=== PATIENT | female | born 1985 | race Caucasian/White ===

== ENCOUNTER 2017-09-20 11:02 | Emergency (ER) | payer MEDICAID ==
[2017-09-20 12:59] LABS: ADD MAN DIFF? NO
[2017-09-20 13:07] LABS: WHITE BLOOD COUNT 9.1 10^3/ul (4.8-10.8)
[2017-09-20 13:07] LABS: ABNORMAL IP MESSAGE 1; BASOPHILS % 0.4 % (0.0-2.0); EOSINOPHILS % 0.2 % (0.0-7.0); HEMATOCRIT 27.1 % (37.0-47.0); HEMOGLOBIN 7.6 g/dl (12.0-16.0); LYMPHOCYTES # 1.9 10^3/ul (0.8-2.9); LYMPHOCYTES % 21.3 % (15.0-51.0); MEAN CORPUSCULAR HEMOGLOBIN 17.4 pg (29.0-33.0); MEAN PLATELET VOLUME 9.6 fl (7.4-10.4); MONOCYTE # 0.7 10^3/ul (0.3-0.9); MONOCYTES % 7.2 % (0.0-11.0); NEUTROPHIL # 6.4 10^3/ul (1.6-7.5); NEUTROPHILS % 70.3 % (39.0-77.0); PLATELET COUNT 485 10^3/UL (140-415); RED BLOOD COUNT 4.37 10^6/ul (4.20-5.40); RED CELL DISTRIBUTION WIDTH 17.2 % (11.5-14.5)
[2017-09-20] MEDS: METOCLOPRAMIDE 10 MG TAB PO (13:07)
[2017-09-20 13:09] LABS: POSITIVE DIFF @See below
[2017-09-20 14:23] LABS: IMMEDIATE SPIN CROSSMATCH 1 1
[2017-09-20] MEDS: SOD CHLORIDE 0.9% 250 ML IV (14:30)
[2017-09-20 14:38] LABS: ADD UMIC YES; UR ASCORBIC ACID NEGATIVE (NEGATIVE); UR BILIRUBIN (Dip) NEGATIVE (NEGATIVE); UR BLOOD (Dip) 3+ mg/dL (NEGATIVE); UR CLARITY CLEAR (CLEAR); UR COLOR YELLOW (YELLOW); UR GLUCOSE (Dip) NEGATIVE (NEGATIVE); UR KETONES (Dip) NEGATIVE (NEGATIVE); UR LEUKOCYTE ESTERASE (Dip) NEGATIVE Leu/ul (NEGATIVE); UR NITRITE (Dip) NEGATIVE (NEGATIVE); UR RBC 1 /HPF (0-5); UR TOTAL PROTEIN (Dip) NEGATIVE (NEGATIVE); UR UROBILINOGEN (Dip) NEGATIVE (NEGATIVE); UR WBC 1 /HPF (0-5)
== END 2017-09-20 17:01 | disposition home or self-care (01) ==
LOC: FTE 11:02 → E/R 17:01
DX: D64.9 Anemia, unspecified (principal); Z87.891 Personal history of nicotine dependence
CPT/HCPCS: 36430; 81001; 81025; 85025; 86850; 86900; 86901; 86920; 99291-25

== ENCOUNTER 2017-11-19 11:30 | Emergency (ER) | payer MEDICAID | END 2017-11-19 12:35 | disposition home or self-care (01) | LOC: FTE 11:30 | DX: K12.1 Other forms of stomatitis (principal); K12.30 Oral mucositis (ulcerative), unspecified | CPT/HCPCS: 99283; Z7502 ==

== ENCOUNTER 2017-12-17 13:47 | Emergency (ER) | payer MEDICAID ==
[2017-12-17] MEDS: ONDANSETRON 4 MG INJ IV (15:55)
[2017-12-17] MEDS: SOD CHLORIDE 0.9% 1,000 ML IV (15:55)
[2017-12-17 16:09] LABS: ADD MAN DIFF? NO
[2017-12-17 16:12] LABS: WHITE BLOOD COUNT 10.2 10^3/ul (4.8-10.8)
[2017-12-17 16:12] LABS: ABNORMAL IP MESSAGE 1; BASOPHILS % 0.3 % (0.0-2.0); EOSINOPHILS % 0.4 % (0.0-7.0); HEMATOCRIT 27.8 % (37.0-47.0); HEMOGLOBIN 7.7 g/dl (12.0-16.0); LYMPHOCYTES # 2.1 10^3/ul (0.8-2.9); LYMPHOCYTES % 20.2 % (15.0-51.0); MEAN CORPUSCULAR HEMOGLOBIN 17.1 pg (29.0-33.0); MEAN CORPUSCULAR HGB CONC 27.7 g/dl (32.0-37.0); MEAN CORPUSCULAR VOLUME 61.8 fl (82.0-101.0); MEAN PLATELET VOLUME 10.4 fl (7.4-10.4); MONOCYTE # 0.7 10^3/ul (0.3-0.9); MONOCYTES % 7.1 % (0.0-11.0); NEUTROPHIL # 7.3 10^3/ul (1.6-7.5); NEUTROPHILS % 71.6 % (39.0-77.0); PLATELET COUNT 493 10^3/UL (140-415)
[2017-12-17 16:15] LABS: ADD UMIC YES; UR ASCORBIC ACID NEGATIVE (NEGATIVE); UR BILIRUBIN (Dip) NEGATIVE (NEGATIVE); UR BLOOD (Dip) NEGATIVE (NEGATIVE); UR CLARITY SLIGHTLY CLOUDY (CLEAR); UR COLOR YELLOW (YELLOW); UR GLUCOSE (Dip) NEGATIVE (NEGATIVE); UR KETONES (Dip) NEGATIVE (NEGATIVE); UR LEUKOCYTE ESTERASE (Dip) 1+ Leu/ul (NEGATIVE); UR MUCUS FEW /HPF (NONE SEEN); UR NITRITE (Dip) NEGATIVE (NEGATIVE); UR RBC 6 /HPF (0-5); UR SPECIFIC GRAVITY (Dip) 1.026 (1.003-1.030); UR SQUAMOUS EPITHELIAL CELL FEW /HPF (FEW); UR TOTAL PROTEIN (Dip) NEGATIVE (NEGATIVE); UR UROBILINOGEN (Dip) NEGATIVE (NEGATIVE); UR WBC 3 /HPF (0-5)
[2017-12-17 16:19] LABS: POSITIVE DIFF @See below
[2017-12-17 16:29] LABS: ALANINE AMINOTRANSFERASE 21 IU/L (13-69); ALBUMIN 4.1 g/dl (3.3-4.9); ALBUMIN/GLOBULIN RATIO 1.36; ALKALINE PHOSPHATASE 64 IU/L (42-121); ANION GAP 10 (8-16); ASPARTATE AMINO TRANSFERASE 17 IU/L (15-46); BILIRUBIN,INDIRECT 0.3 mg/dl (0-1.1); BILIRUBIN,TOTAL 0.3 mg/dl (0.2-1.3); BLOOD UREA NITROGEN 11 mg/dl (7-20); CALCIUM 8.9 mg/dl (8.4-10.2); CARBON DIOXIDE 27 mmol/L (21-31); CHLORIDE 108 mmol/L (97-110); CREATININE 0.65 mg/dl (0.44-1.00); GLUCOSE 96 mg/dl (70-220); LIPASE 117 U/L (23-300); POTASSIUM 4.1 mmol/L (3.5-5.1); SODIUM 141 mmol/L (135-144); TOTAL PROTEIN 7.1 g/dl (6.1-8.1)
== END 2017-12-17 18:24 | disposition home or self-care (01) ==
LOC: FTE 18:24
DX: R11.10 Vomiting, unspecified (principal); R19.7 Diarrhea, unspecified
CPT/HCPCS: 36415; 74176; 80053; 81001; 81025; 83690; 85025; 96374; 99285-25

== ENCOUNTER 2018-01-03 17:52 | Emergency (ER) | payer MEDICAID ==
[2018-01-03 20:03] LABS: URINE BLOOD (Dip) POC Negative (NEGATIVE); URINE GLUCOSE (Dip) POC Negative (NEGATIVE); URINE KETONES (Dip) POC Negative (NEGATIVE); URINE LEUKOCYTE EST (Dip) POC Negative (NEGATIVE); URINE NITRITE (Dip) POC Negative (NEGATIVE); URINE TOTAL PROTEIN POC Negative (NEGATIVE)
[2018-01-03] MEDS: SOD CHLORIDE 0.9% 500 ML IV (20:03)
[2018-01-03 20:21] LABS: ADD MAN DIFF? NO
[2018-01-03 20:22] LABS: WHITE BLOOD COUNT 10.7 10^3/ul (4.8-10.8)
[2018-01-03 20:22] LABS: ABNORMAL IP MESSAGE 1; BASOPHIL # 0.1 10^3/ul (0.0-0.1); BASOPHILS % 0.5 % (0.0-2.0); EOSINOPHILS % 0.2 % (0.0-7.0); HEMATOCRIT 26.9 % (37.0-47.0); HEMOGLOBIN 7.5 g/dl (12.0-16.0); LYMPHOCYTES # 2.8 10^3/ul (0.8-2.9); LYMPHOCYTES % 26.4 % (15.0-51.0); MEAN CORPUSCULAR HGB CONC 27.9 g/dl (32.0-37.0); MEAN CORPUSCULAR VOLUME 60.9 fl (82.0-101.0); MONOCYTES % 8.9 % (0.0-11.0); NEUTROPHIL # 6.8 10^3/ul (1.6-7.5); NEUTROPHILS % 63.6 % (39.0-77.0); PLATELET COUNT 497 10^3/UL (140-415); RED BLOOD COUNT 4.42 10^6/ul (4.20-5.40); RED CELL DISTRIBUTION WIDTH 19.1 % (11.5-14.5)
[2018-01-03 20:25] LABS: POSITIVE DIFF @See below
[2018-01-03 20:40] LABS: ANION GAP 12 (8-16); BLOOD UREA NITROGEN 13 mg/dl (7-20); CARBON DIOXIDE 27 mmol/L (21-31); CHLORIDE 105 mmol/L (97-110); CREATININE 0.71 mg/dl (0.44-1.00); GLUCOSE 86 mg/dl (70-220); POTASSIUM 3.7 mmol/L (3.5-5.1); SODIUM 140 mmol/L (135-144)
== END 2018-01-03 21:22 | disposition home or self-care (01) ==
LOC: FTE 21:22
DX: D64.9 Anemia, unspecified (principal)
CPT/HCPCS: 80048; 81003; 81025; 85025; 99284-25

== ENCOUNTER 2018-01-25 17:33 | Inpatient (IN) | payer MEDICAID ==
[2018-01-25] MEDS: SOD CHLORIDE 0.9% 1,000 ML IV (19:33)
[2018-01-25 19:41] LABS: URINE BLOOD (Dip) POC Trace-lysed (NEGATIVE); URINE GLUCOSE (Dip) POC Negative (NEGATIVE); URINE KETONES (Dip) POC Negative (NEGATIVE); URINE LEUKOCYTE EST (Dip) POC Negative (NEGATIVE); URINE NITRITE (Dip) POC Negative (NEGATIVE); URINE TOTAL PROTEIN POC Negative (NEGATIVE)
[2018-01-25 19:45] LABS: WHITE BLOOD COUNT 10.8 10^3/ul (4.8-10.8)
[2018-01-25 19:45] LABS: ABNORMAL IP MESSAGE 1; HEMATOCRIT 23.2 % (37.0-47.0); MEAN CORPUSCULAR HEMOGLOBIN 16.5 pg (29.0-33.0); MEAN CORPUSCULAR HGB CONC 27.6 g/dl (32.0-37.0); MEAN CORPUSCULAR VOLUME 59.9 fl (82.0-101.0); MEAN PLATELET VOLUME 9.8 fl (7.4-10.4); PLATELET COUNT 516 10^3/UL (140-415); RED BLOOD COUNT 3.87 10^6/ul (4.20-5.40); RED CELL DISTRIBUTION WIDTH 18.1 % (11.5-14.5)
[2018-01-25 19:50] LABS: ADD MAN DIFF? YES; HEMOGLOBIN 6.4 g/dl (12.0-16.0); PATH REVIEW? YES; POSITIVE DIFF @See below
[2018-01-25 20:06] LABS: ALANINE AMINOTRANSFERASE 30 IU/L (13-69); ALBUMIN 3.6 g/dl (3.3-4.9); ALKALINE PHOSPHATASE 60 IU/L (42-121); ANION GAP 10 (8-16); ASPARTATE AMINO TRANSFERASE 23 IU/L (15-46); BILIRUBIN,INDIRECT 0.2 mg/dl (0-1.1); BILIRUBIN,TOTAL 0.2 mg/dl (0.2-1.3); BLOOD UREA NITROGEN 14 mg/dl (7-20); CALCIUM 8.8 mg/dl (8.4-10.2); CARBON DIOXIDE 26 mmol/L (21-31); CHLORIDE 106 mmol/L (97-110); CREATININE 0.66 mg/dl (0.44-1.00); GLUCOSE 102 mg/dl (70-220); POTASSIUM 3.4 mmol/L (3.5-5.1); SODIUM 139 mmol/L (135-144); TOTAL PROTEIN 6.6 g/dl (6.1-8.1)
[2018-01-25 20:15] LABS: ANISOCYTOSIS 1+ (0-0); BASOPHIL #M 0.2 10^3/ul (0.0-0.0); BASOPHILS % (M) 2 % (0-2); GIANT THROMBO% (M) 3 % (0-0); LYMPHOCYTES #M 2.9 10^3/ul (0.8-2.9); LYMPHOCYTES % (M) 27 % (15-51); METAMYELOCYTES #M 0.1 10^3/ul (0.0-0.0); METAMYELOCYTES %M 1 % (0-0); MICROCYTOSIS 1+ (0-0); MONOCYTE #M 0.7 10^3/ul (0.3-0.9); MONOCYTES % (M) 7 % (0-11); OVALOCYTES 1+ (0-0); PLATELET ESTIMATE NORMAL; POIKILOCYTOSIS 2+ (0-0); POLYCHROMASIA 1+ (0-0); SEGMENTED NEUTROPHILS (M) % 63 % (39-77); SMUDGE%M 17 % (0-0)
[2018-01-25] MEDS ORDERED: ACETAMINOPHEN 325 MG TAB PO (21:30)
[2018-01-25] MEDS ORDERED: DOCUSATE SODIUM 100 MG CAP PO (21:30)
[2018-01-25] MEDS ORDERED: NACL 0.9% 3 ML SYG IV (21:30)
[2018-01-25] MEDS ORDERED: ONDANSETRON 4 MG INJ IV ×2 (21:30)
[2018-01-25] MEDS ORDERED: BISACODYL (EC) 5 MG TAB PO (21:30)
[2018-01-25] MEDS: SOD CHLORIDE 0.9% 250 ML IV (21:45)
[2018-01-25 22:41] LABS: IRON 23 ug/dl (35-150)
[2018-01-25 22:50] LABS: % IRON SATURATION 6 % SAT (22-52); TOTAL IRON BINDING CAPACITY 411 ug/dl (241-421)
[2018-01-25 23:17] LABS: FERRITIN 3.3 ng/ml (6.2-137.0)
[2018-01-25 23:18] LABS: IMMEDIATE SPIN CROSSMATCH 1 2
[2018-01-26] MEDS: FUROSEMIDE 20 MG INJ IV (05:20)
[2018-01-26 06:14] LABS: ADD MAN DIFF? NO
[2018-01-26 06:24] LABS: ABNORMAL IP MESSAGE 1; BASOPHILS % 0.5 % (0.0-2.0); EOSINOPHILS % 0.4 % (0.0-7.0); HEMATOCRIT 28.6 % (37.0-47.0); HEMOGLOBIN 8.4 g/dl (12.0-16.0); LYMPHOCYTES # 2.3 10^3/ul (0.8-2.9); LYMPHOCYTES % 28.3 % (15.0-51.0); MEAN CORPUSCULAR HEMOGLOBIN 18.8 pg (29.0-33.0); MEAN CORPUSCULAR HGB CONC 29.4 g/dl (32.0-37.0); MEAN PLATELET VOLUME 9.9 fl (7.4-10.4); MONOCYTE # 0.6 10^3/ul (0.3-0.9); MONOCYTES % 7.6 % (0.0-11.0); NEUTROPHIL # 5.1 10^3/ul (1.6-7.5); PLATELET COUNT 474 10^3/UL (140-415); RED BLOOD COUNT 4.47 10^6/ul (4.20-5.40); RED CELL DISTRIBUTION WIDTH 23.5 % (11.5-14.5)
[2018-01-26 06:24] LABS: WHITE BLOOD COUNT 8.1 10^3/ul (4.8-10.8)
[2018-01-26 06:54] LABS: ALANINE AMINOTRANSFERASE 30 IU/L (13-69); ALBUMIN 3.3 g/dl (3.3-4.9); ALKALINE PHOSPHATASE 49 IU/L (42-121); ANION GAP 12 (8-16); ASPARTATE AMINO TRANSFERASE 19 IU/L (15-46); BILIRUBIN,INDIRECT 0.6 mg/dl (0-1.1); BILIRUBIN,TOTAL 0.6 mg/dl (0.2-1.3); BLOOD UREA NITROGEN 9 mg/dl (7-20); CALCIUM 8.5 mg/dl (8.4-10.2); CARBON DIOXIDE 24 mmol/L (21-31); CHLORIDE 111 mmol/L (97-110); GLUCOSE 84 mg/dl (70-220); MAGNESIUM 2.1 mg/dl (1.7-2.5); POTASSIUM 3.8 mmol/L (3.5-5.1); SODIUM 143 mmol/L (135-144); TOTAL PROTEIN 6.3 g/dl (6.1-8.1)
[2018-01-26 06:55] LABS: HEMOGLOBIN A1C 5.3 % (0-5.9)
[2018-01-26 07:16] LABS: POSITIVE DIFF @See below
[2018-01-26 07:23] LABS: LACTATE DEHYDROGENASE 506 IU/L (313-618)
[2018-01-26 07:25] LABS: RETICULOCYTE COUNT # 0.032 X10^6 (0.020-0.110); RETICULOCYTE COUNT % 0.7 % (0.5-1.5)
[2018-01-26 07:25] LABS: RETICULOCYTE RBC 4.52
[2018-01-26 08:01] LABS: HIV 1&2 ANTIBODY NEGATIVE (NEGATIVE)
[2018-01-26] MEDS: ACETAMINOPHEN 325 MG TAB PO (08:51)
[2018-01-26 09:32] LABS: CHOLESTEROL 119 mg/dl (100-200)
[2018-01-26 09:32] LABS: CHOL/HDL RATIO 3.3 RATIO; HDL CHOLESTEROL 36 mg/dl (34-82); LDL CHOLESTEROL,CALCULATED 69 mg/dl; TRIGLYCERIDES 69 mg/dl (0-149)
[2018-01-26 09:40] LABS: OCCULT BLOOD STOOL POSITIVE (NEGATIVE)
[2018-01-26 12:11] LABS: RETICULOCYTE COUNT # 0.035 X10^6 (0.020-0.110); RETICULOCYTE COUNT % 0.7 % (0.5-1.5)
[2018-01-26 12:55] LABS: LACTATE DEHYDROGENASE 355 IU/L (313-618)
[2018-01-26 13:31] LABS: FOLATE 10.9 ng/ml (2.8-20.0)
[2018-01-26] MEDS: SOD FERRIC GLUC COMPLX 125 MG in SOD CHLORIDE 0.9% 100 ML IVPB (16:33)
[2018-01-26] MEDS ORDERED: SOD FERRIC GLUC COMPLX 125 MG in SOD CHLORIDE 0.9% 100 ML IVPB (17:00)
[2018-01-26] MEDS: PANTOPRAZOLE 40 MG INJ IV (18:06)
[2018-01-26] MEDS: SUCRALFATE (100 MG/ML) 10ML CUP GTB (20:35)
[2018-01-26] MEDS: LIDOCAINE/MYLANTA 40 ML BTL PO (20:35)
[2018-01-26] MEDS: POLYETHYLENE GLYCOL 17 GM PACKET PO (20:35)
[2018-01-26] MEDS: BISACODYL (EC) 5 MG TAB PO (20:36)
[2018-01-27 05:31] LABS: ADD MAN DIFF? NO
[2018-01-27 05:34] LABS: ABNORMAL IP MESSAGE 1; BASOPHILS % 0.4 % (0.0-2.0); EOSINOPHILS % 0.2 % (0.0-7.0); HEMATOCRIT 29.8 % (37.0-47.0); HEMOGLOBIN 8.8 g/dl (12.0-16.0); LYMPHOCYTES # 2.1 10^3/ul (0.8-2.9); LYMPHOCYTES % 23.3 % (15.0-51.0); MEAN CORPUSCULAR HEMOGLOBIN 18.7 pg (29.0-33.0); MEAN CORPUSCULAR HGB CONC 29.5 g/dl (32.0-37.0); MEAN CORPUSCULAR VOLUME 63.4 fl (82.0-101.0); MONOCYTE # 0.8 10^3/ul (0.3-0.9); MONOCYTES % 9.2 % (0.0-11.0); NEUTROPHIL # 5.9 10^3/ul (1.6-7.5); NEUTROPHILS % 66.3 % (39.0-77.0); PLATELET COUNT 482 10^3/UL (140-415); RED CELL DISTRIBUTION WIDTH 23.5 % (11.5-14.5)
[2018-01-27 05:34] LABS: WHITE BLOOD COUNT 8.9 10^3/ul (4.8-10.8)
[2018-01-27 05:47] LABS: POSITIVE DIFF @See below
[2018-01-27] MEDS: PANTOPRAZOLE 40 MG INJ IV ×2 (05:57→17:40)
[2018-01-27 06:03] LABS: MAGNESIUM 2.3 mg/dl (1.7-2.5)
[2018-01-27 06:03] LABS: PHOSPHORUS 4.2 mg/dl (2.5-4.9)
[2018-01-27 06:11] LABS: ALANINE AMINOTRANSFERASE 25 IU/L (13-69); ALBUMIN 3.5 g/dl (3.3-4.9); ALBUMIN/GLOBULIN RATIO 1.25; ALKALINE PHOSPHATASE 52 IU/L (42-121); ANION GAP 9 (8-16); ASPARTATE AMINO TRANSFERASE 18 IU/L (15-46); BILIRUBIN,INDIRECT 0.4 mg/dl (0-1.1); BILIRUBIN,TOTAL 0.4 mg/dl (0.2-1.3); BLOOD UREA NITROGEN 11 mg/dl (7-20); CALCIUM 8.8 mg/dl (8.4-10.2); CARBON DIOXIDE 27 mmol/L (21-31); CHLORIDE 110 mmol/L (97-110); CREATININE 0.67 mg/dl (0.44-1.00); GLUCOSE 92 mg/dl (70-220); POTASSIUM 4.2 mmol/L (3.5-5.1); SODIUM 142 mmol/L (135-144); TOTAL PROTEIN 6.3 g/dl (6.1-8.1)
[2018-01-27 06:26] LABS: HEMATOCRIT 32.6 % (35.0-45.0); MCH 18.5 pg (27.0-33.0); MCV 66.9 fL (80.0-100.0); RDW 21.6 % (11.0-15.0); RED BLOOD CELL COUNT 4.87 Million/uL (3.80-5.10)
[2018-01-27] MEDS: BISACODYL (EC) 5 MG TAB PO ×2 (09:06→16:27)
[2018-01-27] MEDS: POLYETHYLENE GLYCOL 3350 119 GM POWDER PO ×2 (09:06→16:54)
[2018-01-27] MEDS: SUCRALFATE (100 MG/ML) 10ML CUP GTB ×4 (09:06→21:03)
[2018-01-27] MEDS: MAGNESIUM CITRATE 300 ML BTL PO (09:12)
[2018-01-27 09:31] LABS: PROTEIN, TOTAL 6.4 g/dL (6.1-8.1)
[2018-01-27] MEDS: SOD FERRIC GLUC COMPLX 125 MG in SOD CHLORIDE 0.9% 100 ML IVPB (16:28)
[2018-01-28 05:06] LABS: ADD MAN DIFF? NO
[2018-01-28 05:15] LABS: WHITE BLOOD COUNT 9.5 10^3/ul (4.8-10.8)
[2018-01-28 05:15] LABS: ABNORMAL IP MESSAGE 1; BASOPHIL # 0.1 10^3/ul (0.0-0.1); BASOPHILS % 0.5 % (0.0-2.0); EOSINOPHILS % 0.3 % (0.0-7.0); HEMATOCRIT 30.4 % (37.0-47.0); HEMOGLOBIN 8.9 g/dl (12.0-16.0); LYMPHOCYTES # 1.9 10^3/ul (0.8-2.9); LYMPHOCYTES % 20.3 % (15.0-51.0); MEAN CORPUSCULAR HEMOGLOBIN 18.7 pg (29.0-33.0); MEAN CORPUSCULAR HGB CONC 29.3 g/dl (32.0-37.0); MEAN PLATELET VOLUME 9.4 fl (7.4-10.4); MONOCYTE # 0.9 10^3/ul (0.3-0.9); NEUTROPHIL # 6.6 10^3/ul (1.6-7.5); NEUTROPHILS % 69.6 % (39.0-77.0); PLATELET COUNT 483 10^3/UL (140-415); RED BLOOD COUNT 4.75 10^6/ul (4.20-5.40); RED CELL DISTRIBUTION WIDTH 24.7 % (11.5-14.5)
[2018-01-28] MEDS: PANTOPRAZOLE 40 MG INJ IV ×2 (05:24→17:28)
[2018-01-28 05:34] LABS: POSITIVE DIFF @See below
[2018-01-28 05:36] LABS: ANION GAP 13 (8-16); BLOOD UREA NITROGEN 9 mg/dl (7-20); CALCIUM 9.5 mg/dl (8.4-10.2); CARBON DIOXIDE 26 mmol/L (21-31); CHLORIDE 107 mmol/L (97-110); CREATININE 0.66 mg/dl (0.44-1.00); GLUCOSE 85 mg/dl (70-220); POTASSIUM 4.3 mmol/L (3.5-5.1); SODIUM 142 mmol/L (135-144)
[2018-01-28 05:41] LABS: MAGNESIUM 2.3 mg/dl (1.7-2.5)
[2018-01-28 05:41] LABS: PHOSPHORUS 4.9 mg/dl (2.5-4.9)
[2018-01-28] MEDS: SUCRALFATE (100 MG/ML) 10ML CUP GTB ×4 (09:00→21:26)
[2018-01-28] MEDS: PROPOFOL 40 ML (15:34)
[2018-01-28] MEDS: PROPOFOL 20 ML (16:45)
[2018-01-28] MEDS: SOD FERRIC GLUC COMPLX 125 MG in SOD CHLORIDE 0.9% 100 ML IVPB (16:49)
[2018-01-29] MEDS: PANTOPRAZOLE 40 MG INJ IV (05:29)
[2018-01-29] MEDS: SUCRALFATE (100 MG/ML) 10ML CUP GTB ×2 (08:21→13:39)
[2018-01-29 12:31] LABS: HEMOGLOBIN F <1.0 % (<2.0)
[2018-01-29 13:44] LABS: ADD MAN DIFF? NO
[2018-01-29 13:47] LABS: ABNORMAL IP MESSAGE 1; BASOPHILS % 0.4 % (0.0-2.0); EOSINOPHILS % 0.3 % (0.0-7.0); HEMOGLOBIN 9.3 g/dl (12.0-16.0); LYMPHOCYTES # 1.8 10^3/ul (0.8-2.9); LYMPHOCYTES % 23.4 % (15.0-51.0); MEAN CORPUSCULAR HEMOGLOBIN 18.5 pg (29.0-33.0); MEAN CORPUSCULAR HGB CONC 28.2 g/dl (32.0-37.0); MEAN CORPUSCULAR VOLUME 65.6 fl (82.0-101.0); MEAN PLATELET VOLUME 9.7 fl (7.4-10.4); MONOCYTE # 0.5 10^3/ul (0.3-0.9); NEUTROPHIL # 5.5 10^3/ul (1.6-7.5); NEUTROPHILS % 69.3 % (39.0-77.0); PLATELET COUNT 509 10^3/UL (140-415); RED BLOOD COUNT 5.03 10^6/ul (4.20-5.40); RED CELL DISTRIBUTION WIDTH 25.4 % (11.5-14.5)
[2018-01-29 13:47] LABS: WHITE BLOOD COUNT 7.9 10^3/ul (4.8-10.8)
[2018-01-29 13:54] LABS: POSITIVE DIFF @See below
[2018-01-29 18:31] LABS: HAPTOGLOBIN 253 mg/dL (43-212)
[2018-01-29 23:04] LABS: ALBUMIN 3.6 g/dL (3.8-4.8); ALPHA-1-GLOBULINS 0.4 g/dL (0.2-0.3); ALPHA-2-GLOBULINS 0.7 g/dL (0.5-0.9); BETA 2 GLOBULINS 0.4 g/dL (0.2-0.5); BETA GLOBULINS 0.6 g/dL (0.4-0.6); GAMMA GLOBULINS 0.9 g/dL (0.8-1.7)
== END 2018-01-29 16:50 | disposition home or self-care (01) | DRG 812 ==
LOC: MS1 21:01 → FTE 17:33
PROC: 0DB98ZX Excision of Duodenum, Via Natural or Artificial Opening Endoscopic, Diagnostic (ICD-10-PCS; principal; 2018-01-28 14:15)
PROC: 0DB68ZX Excision of Stomach, Via Natural or Artificial Opening Endoscopic, Diagnostic (ICD-10-PCS; 2018-01-28 14:15)
PROC: 0DJD8ZZ Inspection of Lower Intestinal Tract, Via Natural or Artificial Opening Endoscopic (ICD-10-PCS; 2018-01-28 14:15)
PROC: 30233N1 Transfusion of Nonautologous Red Blood Cells into Peripheral Vein, Percutaneous Approach (ICD-10-PCS; 2018-01-28 14:15)
DX: D50.9 Iron deficiency anemia, unspecified (principal); E66.9 Obesity, unspecified; K59.09 Other constipation; Z68.30 Body mass index [BMI] 30.0-30.9, adult
CPT/HCPCS: 36430; 76830; 76856; 80048; 80053; 80061; 81003; 81025; 82270; 82607; 82728; 82746; 83010; 83020; 83036; 83540; 83615; 83735; 84100; 84155; 84165; 84443; 85025; 85045; 86703; 86850; 86900; 86901; 86920; 88305; 88312; 96360; 99285-25